=== PATIENT | male | born 1955 | race Caucasian/White ===

== ENCOUNTER 2021-08-12 13:31 | Outpatient (REF) | payer MEDICARE, SELFPAY ==
--- NOTE | ~2021-08-12 | US_ITS ---
EXAMINATION: US RETROPERITONEAL LIMITED (RENAL ONLY) CLINICAL INFORMATION: Cyst of kidney. COMPARISON: Ultrasound renal only 07/26/2017. TECHNIQUE: Real-time imaging of the kidneys. FINDINGS: RIGHT KIDNEY: 11.0 x 6.1 x 5.4 cm (SAG x AP x TRV). The kidney is normal in size, contour, and echogenicity. Renal cortical thickness is normal. No focal parenchymal lesions or hydronephrosis. Multiple calculi are noted in the right kidney for example in the interpolar region measuring 0.3 cm, and the lower pole region measuring 0.4 cm and in the interpolar region measuring 0.3 cm. LEFT KIDNEY: 12.5 x 5.5 x 5.5 cm (SAG x AP x TRV). The kidney is normal in size, contour, and echogenicity. Renal cortical thickness is normal. No hydronephrosis. Multiple left renal cysts are noted. The largest appearing in the left renal upper pole exophytic in size measuring 5.8 x 3.9 x 3.7 cm with septation. Additional cyst noted in the interpolar region measuring 1.6 x 2.5 x 1.7 cm. Multiple parapelvic cysts are noted. Multiple echogenic foci are noted as well as calculi for instance in the upper pole measuring up to 4 mm US/US renal BI IMPRESSION: 1. Right-sided nephrolithiasis without hydronephrosis. 2. Redemonstration of multiple cysts of the left kidney some of which are parapelvic in etiology in the largest appearing in the left upper pole, exophytic in nature with septation measuring up to 5.8 cm previously measuring up to 5.2 cm.
== END 2021-08-12 13:32 | disposition home or self-care (01) ==
LOC: HO.HMGCX 13:31
PROVIDERS: PCP Family Medicine; Visit Provider Urology
DX: N28.1 Cyst of kidney, acquired (principal); R31.29 Other microscopic hematuria
CPT/HCPCS: 76775

== ENCOUNTER → 2021-09-30 08:34 | Outpatient (BNVA) | payer MEDICARE, SELFPAY | PROVIDERS: PCP Family Medicine; Visit Provider Urology | DX: N20.0 Calculus of kidney (principal); N30.80 Other cystitis without hematuria; N28.1 Cyst of kidney, acquired; R97.20 Elevated prostate specific antigen [PSA] | CPT/HCPCS: Q3014 ==

== ENCOUNTER 2022-02-11 11:00 | Outpatient (REF) | payer MEDICARE, SELFPAY ==
--- NOTE | ~2022-02-11 | US_ITS ---
EXAMINATION: US RETROPERITONEAL LIMITED (RENAL ONLY) CLINICAL INFORMATION: Calculus of kidney. COMPARISON: Renal ultrasound 08/12/2021 and 07/26/2017. TECHNIQUE: Real-time imaging of the kidneys. FINDINGS: RIGHT KIDNEY: 11.3 x 5.6 x 5.0 cm (SAG x AP x TRV). The kidney is normal in size, contour, and echogenicity. Renal cortical thickness is normal. No focal parenchymal lesions or hydronephrosis. There are multiple renal calculi. Three calculi are outlined by the artificial leather calender operator, the largest in the lower pole measuring 4 mm. Another 3 mm calculus in the lower pole and a 3 mm calculus in the midpole likely. No hydronephrosis LEFT KIDNEY: 13.7 x 8.6 x 6.4 cm (SAG x AP x TRV). The kidney is normal in size, contour, and echogenicity. Renal cortical thickness is normal. No renal calculi. There is hydronephrosis here. This appears moderate. Etiology is indeterminate. Findings suggest a complex cyst involving the upper pole. Measures 5.4 x 3.1 x 4.5 cm. There appears to be a septation. US/US renal BI IMPRESSION: Hydronephrosis on the left. Etiology is indeterminate. This appears moderate. No stone is seen. Once again a complex cyst associated with the upper pole not significantly changed from most recent previous. If definitive evaluation is warranted at this time dynamic MRI would be recommended to fully characterize. Otherwise attention to follow-up. Numerous nonobstructing calculi involving the right kidney. No hydronephrosis here.
== END 2022-02-11 11:01 | disposition home or self-care (01) ==
LOC: HO.HMGCX 11:00
PROVIDERS: PCP Family Medicine; Visit Provider Urology
DX: N20.0 Calculus of kidney (principal)
CPT/HCPCS: 76775

== ENCOUNTER 2022-04-02 10:03 | Outpatient (REF) | payer MEDICARE, SELFPAY ==
[2022-04-02 11:41] LABS: PSA,Total (Free>4and<10) 5.72 ng/mL (0.00-4.00)
[2022-04-06 13:22] LABS: Free Prostate Spec Ag 1.1 ng/mL; Percent Free Prostate Spec Ag 22 % (calc) (>25)
== END 2022-04-02 10:04 | disposition home or self-care (01) ==
LOC: HO.LAB 10:03
PROVIDERS: PCP Family Medicine; Visit Provider Urology
DX: Z12.5 Encounter for screening for malignant neoplasm of prostate (principal); N13.8 Other obstructive and reflux uropathy; N40.1 Benign prostatic hyperplasia with lower urinary tract symptoms; R97.20 Elevated prostate specific antigen [PSA]
CPT/HCPCS: 36415; 84153; 84154

== ENCOUNTER → 2022-04-09 11:02 | Outpatient (BNVA) | payer MEDICARE, SELFPAY | PROVIDERS: PCP Family Medicine; Visit Provider Urology | DX: N20.0 Calculus of kidney (principal); N32.0 Bladder-neck obstruction; R97.20 Elevated prostate specific antigen [PSA] | CPT/HCPCS: 99212 ==

== ENCOUNTER → 2022-10-13 10:17 | Outpatient (BNVA) | payer MEDICARE, SELFPAY | PROVIDERS: PCP Family Medicine; Visit Provider Urology | DX: R97.20 Elevated prostate specific antigen [PSA] (principal); N52.9 Male erectile dysfunction, unspecified; N20.0 Calculus of kidney | CPT/HCPCS: Q3014 ==

== ENCOUNTER 2023-03-21 08:00 | Outpatient (REF) | payer MEDICARE, SELFPAY ==
--- NOTE | ~2023-03-21 | US_ITS ---
EXAMINATION: US RETROPERITONEAL LIMITED (RENAL ONLY) CLINICAL INFORMATION: Calculus of kidney. COMPARISON: Ultrasound retroperitoneal limited (renal only) 02/11/2022 and 08/12/2021. TECHNIQUE: Real-time imaging of the kidneys. FINDINGS: RIGHT KIDNEY: 11.7 x 6.3 x 4.9 cm (SAG x AP x TRV). The kidney is normal in size, contour, and echogenicity. Renal cortical thickness is normal. No focal parenchymal lesions or hydronephrosis. Nonobstructing stones measuring 5 mm in the lower pole, previously 4 mm and 4 mm in the upper pole, new from prior. Few other previously seen stones are not identified. LEFT KIDNEY: 13.0 x 5.5 x 5.7 cm (SAG x AP x TRV). The kidney is normal in size, contour, and echogenicity. Renal cortical thickness is normal. No renal calculi. Benign appearing and likely benign renal cysts the largest measuring 3.9 cm with a single thin internal septation, no routine follow up imaging recommended. Left renal pelviectasis without adan hydronephrosis, improved from prior. US/US renal BI IMPRESSION: 1. Nonobstructing right renal stones measuring 5 mm in the lower pole, previously 4 mm and 4 mm in the upper pole, new from prior. Few other previously seen stones are not identified. 2. Left renal pelviectasis without adan hydronephrosis, improved from prior.
== END 2023-03-21 08:01 | disposition home or self-care (01) ==
LOC: HO.US 08:00
PROVIDERS: PCP Family Medicine; Visit Provider Urology
DX: N20.0 Calculus of kidney (principal); R97.20 Elevated prostate specific antigen [PSA]
CPT/HCPCS: 76775

== ENCOUNTER → 2023-04-20 08:20 | Outpatient (BNVA) | payer MEDICARE, SELFPAY | PROVIDERS: PCP Family Medicine; Visit Provider Urology | DX: R97.20 Elevated prostate specific antigen [PSA] (principal); N32.0 Bladder-neck obstruction; N52.9 Male erectile dysfunction, unspecified; N20.0 Calculus of kidney | CPT/HCPCS: 99212 ==

== ENCOUNTER 2023-10-25 15:07 | Outpatient (AMB) | payer MEDICARE, SELFPAY ==
--- NOTE | 2023-10-25 15:12 | MHC.OFFVIS ---
Intake Intake Visit Reasons: 6m/PSA(set) Intake Note: Patient is Present for Telephone Follow Up PSA Urology Med: Finasteride, Tadalafil ,Tamsulosin, Vitamin b6 Antibiotic Allergy:Penicillin Blood Thinner: None Allergies penicillin Allergy (Unknown, Uncoded 04/20/23 08:24) Unknown Medication List - Last Reconciled 10/25/23 by Jeromy Childress MD chlorthalidone 12.5 mg PO QAM finasteride 5 mg PO DAILY 90 days naproxen 500 mg PO BID 14 days pyridoxine (vitamin B6) 100 mg PO DAILY 90 days rosuvastatin 10 mg PO BEDTIME tadalafil 20 mg PO ONCE PRN 30 days tamsulosin 0.4 mg PO daily 14 days vardenafil 10 mg PO DAILY PRN HPI HPI Comments History of Present Illness Details Javed RODRIGUES is a very pleasant male. He is a patient of Dr Quintero. He is seen for the following urologic conditions. - elevated PSA - nephrolithiasis - renal cyst Telemedicine Evaluation 15 min Consultation [employer] Romie Video attempted PSA fell back on finasteride Refill tadalafil Refill finasteride Six month follow-up lab work Imaging with renal ultrasound shows 4 mm stone right side, no stones left Elevated PSA/Abnormal MARIOLA:? He presents for ?further evaluation of elevated PSA.? Current management is?finasteride.? Laboratory investigations include?a total PSA evaluation ?followed for a number for years previously by Dr Giron. ?06/06 3.5, 07/08 3.1 ?12/09 Bladder biopsy - chronic cystitis, 10/09 4.7, 04/11 5.0, 04/11 5.7 F 22%, 10/12 2.9, 04/12 5.1, 10/13 4.1 ? Individualized Prostate Cancer Risk Calculator?< 5% high risk, Would like to continue with observation and understands and accepts the risks of a possible delay in diagnosis.? Therapeutic plan - continue finasteride Renal cyst with nephrolithiasis:? Stable cyst on left. ? They present for ?evaluation of renal mass, probable, simple cyst.? Imaging included?08/08 , a renal ultrasound, showing class II cyst(s), 3.1-5.9 in size, on the left.? - 09/10 renal ultrasound right-sided multiple small stones to 3 mm, left cyst 5 cm ? The diagnosis was?a complex cyst, Grade II.? Repeat ultrasound in 6 months all stone vitamin B6 PFSH Medical History Bursitis Cystitis cystica Elevated prostate specific antigen [PSA] Herpes simplex infection HTN (hypertension) Hyperlipidemia Lesion of bladder Microhematuria Renal cyst Tendonitis Surgical History History of surgery Review of Systems Const All systems reviewed & are unremarkable except as noted in HPI and below Reports no additional complaints Resp Reports no additional complaints GI Reports no additional complaints Reports as per HPI Musc Reports no additional complaints Physical Exam Telemedicine evaluation Appropriate responses Regular breathing rate and rhythm HEENT Head: Yes normal to inspection Ears: hearing grossly normal bilaterally Eyes General: appearance normal, both eyes and all related structures Neck Neck: Yes normal visual inspection Chest Chest palpation & inspection: normal inspection of the chest Resp Effort & Inspection: normal respiratory effort and able to speak in complete sentences Assessment & Plan Assessment & Plan (1) Bladder outlet obstruction: Code(s): N32.0 - Bladder-neck obstruction (2) Erectile dysfunction: Code(s): N52.9 - Male erectile dysfunction, unspecified (3) Cystitis cystica: Code(s): N30.80 - Other cystitis without hematuria Plan 6 month follow-up lab work Medications: Refilled finasteride 5 mg PO DAILY 90 tabs 1RF 90 days N13.8 - Other obstructive and reflux uropathy, N40.1 - Benign prostatic hyperplasia with lower urinary tract symptoms, R33.9 - Retention of urine, unspecified, R97.20 - Elevated prostate specific antigen [PSA] tadalafil 20 mg PO ONCE PRN 30 tabs 0RF sexual activity 30 days N52.9 - Male erectile dysfunction, unspecified Patient Instructions: Imaging studies, laboratory and physical exam results were discussed and reviewed in detail. No major barriers to patient understanding were identified. An opportunity to ask questions regarding the treatment plan was provided. All questions were answered. The patient expressed understanding and agreement with the above treatment plan. The patient is aware they should contact our office by phone for worsening of their current condition or the appearance of new urologic symptoms. Compliance is encouraged with any medications and followup testing that is ordered. It is a privilege to participate in the urologic care of your patient. If you have any questions or concerns regarding treatment for the above conditions, or other urologic issues, please do not hesitate to contact me. The office telephone contact is [phone]. This note is constructed using voice recognition software. While every effort has been made to ensure accuracy portable power tool repairer errors may have been included. Yours sincerely, Dr Jeromy Childress MD, [facility] - Urology Providers of Expert, Compassionate Care for the Genitourinary System Telehealth Telehealth Location of provider rendering services: practice address Location of patient: address on file Patient Identification confirmed using: Name, : Yes Telehealth method: video Patient verbally consented to treatment: Yes Patient verbally consented to billing insurance company: Yes Patient informed of any privacy concerns related to visit: Yes Coding Level of Care Code Tele Est Pt Level 3 (34763) Diagnoses Bladder outlet obstruction N32.0 Erectile dysfunction N52.9 Cystitis cystica N30.80
== END 2023-10-25 16:09 | disposition home or self-care (01) ==
LOC: HO.HUSH 15:07
PROVIDERS: PCP Family Medicine; Visit Provider Urology
DX: N32.0 Bladder-neck obstruction (principal); N52.9 Male erectile dysfunction, unspecified; N30.80 Other cystitis without hematuria
CPT/HCPCS: 99213

== ENCOUNTER → 2023-10-25 15:07 | Outpatient (BNVA) | payer MEDICARE, SELFPAY | PROVIDERS: PCP Family Medicine; Visit Provider Urology ==

== ENCOUNTER 2024-04-27 10:22 | Outpatient (AMB) | payer MEDICARE, SELFPAY ==
--- NOTE | 2024-04-27 10:47 | MHC.OFFVIS ---
Intake Visit Reasons: 6m/PSA/PVR(SET) Intake Note: Patient is Present for PVR/PSA Urology Med: Tamsulosin, Tadalafil Antibiotic Allergy:Penicillin Blood Thinner: None Patient is no longer taking both Vitamin B6 and Finasteride Todays PVR: 83 Allergies penicillin Allergy (Unknown, Uncoded 04/27/24 10:55) Unknown Medication List - Last Reconciled 04/27/24 by Jeromy Childress MD chlorthalidone 12.5 mg PO QAM naproxen 500 mg PO BID 14 days pyridoxine (vitamin B6) 100 mg PO DAILY 90 days rosuvastatin 10 mg PO BEDTIME tadalafil 20 mg PO ONCE PRN 30 days vardenafil 10 mg PO DAILY PRN HPI Comments Details: Javed RODRIGUES is a very pleasant male. He is a patient of Dr Quintero. He is seen for the following urologic conditions. - elevated PSA - nephrolithiasis - renal cyst Six-month follow-up - PSA rise to 6.2 -prior negative biopsy a number of years ago Recommendation prostate MRI Refill tadalafil Imaging with renal ultrasound shows 4 mm stone right side, no stones left Elevated PSA/Abnormal MARIOLA:? He presents for ?further evaluation of elevated PSA.? Current management is?finasteride.? Laboratory investigations include?a total PSA evaluation ?followed for a number for years previously by Dr Giron. ?06/06 3.5, 07/08 3.1 ?12/09 Bladder biopsy - chronic cystitis, 10/09 4.7, 04/11 5.0, 04/11 5.7 F 22%, 10/12 2.9, 04/12 5.1, 10/13 4.1 ? Individualized Prostate Cancer Risk Calculator?< 5% high risk, Would like to continue with observation and understands and accepts the risks of a possible delay in diagnosis.? Therapeutic plan - continue finasteride Renal cyst with nephrolithiasis:? Stable cyst on left. ? They present for ?evaluation of renal mass, probable, simple cyst.? Imaging included?08/08 , a renal ultrasound, showing class II cyst(s), 3.1-5.9 in size, on the left.? - 09/10 renal ultrasound right-sided multiple small stones to 3 mm, left cyst 5 cm ? The diagnosis was?a complex cyst, Grade II.? Repeat ultrasound in 6 months all stone vitamin B6 PFSH Medical History Bursitis Tendonitis Hyperlipidemia Herpes simplex infection HTN (hypertension) Cystitis cystica Microhematuria Elevated prostate specific antigen [PSA] Lesion of bladder Renal cyst Surgical History History of surgery Review of Systems Const Denies chills and Denies fever(s) Card Reports no additional complaints and Denies syncope Resp Denies cough GI Denies abdominal pain and Denies heartburn Reports as per HPI and Denies change in libido Neuro Denies syncope Psych Denies change in libido Endo Denies change in libido Physical Exam Const General: cooperative, healthy appearing, comfortable and no acute distress Orientation/consciousness: patient oriented x3 HEENT Face and sinus: Yes normal facial exam Mouth: moist mucous membranes Neck Neck: Yes normal visual inspection, Yes full ROM and Yes trachea midline Chest Chest palpation & inspection: normal inspection of the chest Resp Effort & Inspection: normal respiratory effort, able to speak in complete sentences and no respiratory distress GI Inspection: Yes normal to inspection Back/Spine/Pelvis Cervical Spine: normal cervical lordosis Thoracic/Lumbar Spine: thoracic and lumbar spine normal to inspection Skin General skin exam: no rashes or lesions noted Neuro General: patient oriented x3, gait normal, tone normal and moves all extremities Extrem General: Yes normal to inspection and Yes capillary refill normal Office Procedures Post Void Residual Post Residual Void Post Void Residual (PVR): 83 [id number] Void Residual by ultrasound Assessment & Plan Assessment & Plan (1) Elevated prostate specific antigen [PSA]: Code(s): R97.20 - Elevated prostate specific antigen [PSA] Category: Medical (2) Bladder outlet obstruction: Code(s): N32.0 - Bladder-neck obstruction Category: Medical (3) Erectile dysfunction: Code(s): N52.9 - Male erectile dysfunction, unspecified Category: Medical Plan Four month follow-up prostate MRI Orders: Orders Blood Urea Nitrogen 4 Months R97.20 - Elevated prostate specific antigen [PSA] Creatinine 4 Months R97.20 - Elevated prostate specific antigen [PSA] AMB Post Void Residual by ultrasound Today N32.0 - Bladder-neck obstruction Prostate Specific Antigen 4 Months R97.20 - Elevated prostate specific antigen [PSA] MR pelvis wo/w con Today N32.0 - Bladder-neck obstruction, N52.9 - Male erectile dysfunction, unspecified, R97.20 - Elevated prostate specific antigen [PSA] Medications: Refilled tadalafil 20 mg PO ONCE 30 days PRN 30 tabs 0RF sexual activity N52.9 - Male erectile dysfunction, unspecified Patient Instructions: Imaging studies, laboratory and physical exam results were discussed and reviewed in detail. No major barriers to patient understanding were identified. An opportunity to ask questions regarding the treatment plan was provided. All questions were answered. The patient expressed understanding and agreement with the above treatment plan. The patient is aware they should contact our office by phone for worsening of their current condition or the appearance of new urologic symptoms. Compliance is encouraged with any medications and followup testing that is ordered. It is a privilege to participate in the urologic care of your patient. If you have any questions or concerns regarding treatment for the above conditions, or other urologic issues, please do not hesitate to contact me. The office telephone contact is [phone]. This note is constructed using voice recognition software. While every effort has been made to ensure accuracy night baker errors may have been included. Yours sincerely, Dr Jeromy Childress MD, [facility] - Urology Providers of Expert, Compassionate Care for the Genitourinary System Coding Level of Care Code Est Pt Level 4 (20163) Diagnoses Elevated prostate specific antigen [PSA] R97.20 Bladder outlet obstruction N32.0 Erectile dysfunction N52.9 CPT Codes Post Residual Void - PVR CPT Code: [id number]-[id number] Void Residual by ultrasound ([id number])
== END 2024-04-27 11:19 | disposition home or self-care (01) ==
PROVIDERS: PCP Family Medicine; Visit Provider Urology
DX: R97.20 Elevated prostate specific antigen [PSA] (principal); N32.0 Bladder-neck obstruction; N52.9 Male erectile dysfunction, unspecified
CPT/HCPCS: 99214

== ENCOUNTER → 2024-04-27 10:22 | Outpatient (BNVA) | payer MEDICARE, SELFPAY | PROVIDERS: PCP Family Medicine; Visit Provider Urology | DX: N32.0 Bladder-neck obstruction (principal); N52.9 Male erectile dysfunction, unspecified; R97.20 Elevated prostate specific antigen [PSA] | CPT/HCPCS: 51798; 99212 ==

== ENCOUNTER 2024-08-29 10:33 | Outpatient (AMB) | payer MEDICARE, SELFPAY ==
--- NOTE | 2024-08-29 10:44 | MHC.OFFVIS ---
Intake Visit Reasons: 4m/PSA/MRI(set) Intake Note: Patient is Present for Follow Up MRI/PSA Urology Medication: Vitamin b6, Tadalafil Antibiotic Allergies:Penicillin Blood Thinners: None Recent PSA: 08/23/2024 4.9 MRI 08/07/24 Obstetrics Nurse Required: No Accompanied by: Self / Same As Patient Allergies penicillin Allergy (Unknown, Uncoded 08/29/24 10:49) Unknown Medication List - Last Reconciled 08/29/24 by Jeromy Childress MD chlorthalidone 12.5 mg PO QAM naproxen 500 mg PO BID 14 days pyridoxine (vitamin B6) 100 mg PO DAILY 90 days rosuvastatin 10 mg PO BEDTIME tadalafil 20 mg PO ONCE PRN 30 days vardenafil 10 mg PO DAILY PRN HPI Comments Details: Javed RODRIGUES is a very pleasant male. He is a patient of Dr Quintero. He is seen for the following urologic conditions. - elevated PSA - nephrolithiasis - renal cyst Continue PSA surveillance Discussed MRI result Continue with surveillance Refill tadalafil Imaging with renal ultrasound shows 4 mm stone right side, no stones left Elevated PSA/Abnormal MARIOLA:? He presents for ?further evaluation of elevated PSA.? Current management is?finasteride.? Laboratory investigations include?a total PSA evaluation ?followed for a number for years previously by Dr Giron. ?06/06 3.5, 07/08 3.1 ?12/09 Bladder biopsy - chronic cystitis, 10/09 4.7, 04/11 5.0, 04/11 5.7 F 22%, 10/12 2.9, 04/12 5.1, 10/13 4.1, 09/13 4.9 Imaging - 08/14 Prostate MRI - PSA 4.9, 70 g prostate, 1.3 cm PI-RADS 3 right lateral mid gland lesion ? Individualized Prostate Cancer Risk Calculator?< 5% high risk, Would like to continue with observation and understands and accepts the risks of a possible delay in diagnosis.? Therapeutic plan - continue finasteride Renal cyst with nephrolithiasis:? Stable cyst on left. ? They present for ?evaluation of renal mass, probable, simple cyst.? Imaging included?08/08 , a renal ultrasound, showing class II cyst(s), 3.1-5.9 in size, on the left.? - 09/10 renal ultrasound right-sided multiple small stones to 3 mm, left cyst 5 cm ? The diagnosis was?a complex cyst, Grade II.? Repeat ultrasound in 6 months all stone vitamin B6 Erectile dysfunction Responsive to tadalafil PFSH Medical History Bursitis Tendonitis Hyperlipidemia Herpes simplex infection HTN (hypertension) Cystitis cystica Microhematuria Elevated prostate specific antigen [PSA] Lesion of bladder Renal cyst Surgical History History of surgery Review of Systems Const Denies chills and Denies fever(s) Card Reports no additional complaints and Denies syncope Resp Denies cough GI Denies abdominal pain and Denies heartburn Reports as per HPI and Denies change in libido Neuro Denies syncope Psych Denies change in libido Endo Denies change in libido Physical Exam Const General: cooperative, healthy appearing, comfortable and no acute distress Orientation/consciousness: patient oriented x3 HEENT Face and sinus: Yes normal facial exam Mouth: moist mucous membranes Neck Neck: Yes normal visual inspection, Yes full ROM and Yes trachea midline Chest Chest palpation & inspection: normal inspection of the chest Resp Effort & Inspection: normal respiratory effort, able to speak in complete sentences and no respiratory distress GI Inspection: Yes normal to inspection Back/Spine/Pelvis Cervical Spine: normal cervical lordosis Thoracic/Lumbar Spine: thoracic and lumbar spine normal to inspection Skin General skin exam: no rashes or lesions noted Neuro General: patient oriented x3, gait normal, tone normal and moves all extremities Extrem General: Yes normal to inspection and Yes capillary refill normal Assessment & Plan Assessment & Plan (1) Erectile dysfunction: Code(s): N52.9 - Male erectile dysfunction, unspecified Category: Medical (2) Bladder outlet obstruction: Code(s): N32.0 - Bladder-neck obstruction Category: Medical (3) Nephrolithiasis: Code(s): N20.0 - Calculus of kidney Category: Medical (4) Elevated prostate specific antigen [PSA]: Code(s): R97.20 - Elevated prostate specific antigen [PSA] Category: Medical Plan Six-month follow-up Orders: Orders PSA,Total (Free>4and<10) 6 Months R97.20 - Elevated prostate specific antigen [PSA] Patient Instructions: Imaging studies, laboratory and physical exam results were discussed and reviewed in detail. No major barriers to patient understanding were identified. An opportunity to ask questions regarding the treatment plan was provided. All questions were answered. The patient expressed understanding and agreement with the above treatment plan. The patient is aware they should contact our office by phone for worsening of their current condition or the appearance of new urologic symptoms. Compliance is encouraged with any medications and followup testing that is ordered. It is a privilege to participate in the urologic care of your patient. If you have any questions or concerns regarding treatment for the above conditions, or other urologic issues, please do not hesitate to contact me. The office telephone contact is [phone]. This note is constructed using voice recognition software. While every effort has been made to ensure accuracy ticket chopper assembler errors may have been included. Yours sincerely, Dr Jeromy Childress MD, [facility] - Urology Providers of Expert, Compassionate Care for the Genitourinary System Coding Level of Care Code Est Pt Level 3 (16168) Diagnoses Erectile dysfunction N52.9 Bladder outlet obstruction N32.0 Nephrolithiasis N20.0 Elevated prostate specific antigen [PSA] R97.20
== END 2024-08-29 11:32 | disposition home or self-care (01) ==
PROVIDERS: PCP Family Medicine; Visit Provider Urology
DX: N52.9 Male erectile dysfunction, unspecified (principal); N32.0 Bladder-neck obstruction; N20.0 Calculus of kidney; R97.20 Elevated prostate specific antigen [PSA]
CPT/HCPCS: 99213

== ENCOUNTER → 2024-08-29 10:33 | Outpatient (BNVA) | payer MEDICARE, SELFPAY | PROVIDERS: PCP Family Medicine; Visit Provider Urology | DX: R97.20 Elevated prostate specific antigen [PSA] (principal); N20.0 Calculus of kidney; N28.1 Cyst of kidney, acquired; N32.0 Bladder-neck obstruction; N52.9 Male erectile dysfunction, unspecified | CPT/HCPCS: 99212 ==

== ENCOUNTER 2025-02-15 10:52 | Outpatient (REF) | payer MEDICARE, SELFPAY ==
[2025-02-15 15:12] LABS: PSA,Total (Free>4and<10) 6.19 ng/mL (0.00-4.00)
[2025-02-18 13:13] LABS: Free Prostate Spec Ag 0.8 ng/mL; Percent Free Prostate Spec Ag 15 % (calc) (>25); Prostate Specific Ag Total 5.5 ng/mL (< OR = 4.0)
== END 2025-02-15 10:53 | disposition home or self-care (01) ==
LOC: HO.WFDLDS 10:52
PROVIDERS: Visit Provider Urology
DX: R97.20 Elevated prostate specific antigen [PSA] (principal); Z12.5 Encounter for screening for malignant neoplasm of prostate
CPT/HCPCS: 36415; 84153; 84154

== ENCOUNTER 2025-02-18 17:56 | Outpatient (REF) | payer MEDICARE, SELFPAY ==
--- OUTSIDE RECORDS SUMMARY | 2025-02-18 18:19 | XMS_ITS | Encounter Summary ---
Author Organization [facility] Address [address] [place] [address] Phone Care Team Providers Care Tug Hand Name Role Phone Carlos Quintero DO Primary Care Provider [phone] Encounter Details Date Type Department Care Team (Late st Contact Info) Description 04/13/2022 Documentation Only [facility] [address] [place] [id number] Stanton Golden DO [address] [place] [address] Social History Tobacco Use Types Packs/Day Years Used Date Smoking Tobacco: Never Smokeless Tobacco: Never Alcohol Use Standard Drinks/Week Comments Yes 0 (1 standard drink = 0.6 oz pur e alcohol) 1-2 times per year Sex and Gender Information Value Date Recorded Sex Assigned at Not on file Legal Sex Male 11:47 AM EST Gender Identity Not on file Sexual Orientation Not on file COVID-19 Exposure Response Date Recorded In the last 10 days, have yo u been in contact with someone who was confirmed or suspected to have Coronavirus/COVID-19? No / Unsure 04/12/2022 10:23 AM EDT documented as of this encounter Plan of Treatment Not on file documented as of this encounter Visit Diagnoses Not on filedocumented in this encounter Care Teams Tug Hand Relationship Specialty Start Date End Date Carlos Quintero DO [address] [place] [id number] PCP - General Family Medicine 10/14/21 documented as of this encounter
--- OUTSIDE RECORDS SUMMARY | 2025-02-18 18:19 | XMS_ITS | Encounter Summary ---
Author Organization [facility] Address [address] [facility] [address] [place] [address] Phone Care Team Providers Care Edge Drummer Name Role Phone Carlos Quintero DO Primary Care Provider [phone] Reason for Visit * Reason Comments Med Refill Encounter Details Date Type Department Care Team (Late st Contact Info) Description 12/01/2021 Refill [facility] [address] [place] [address] Stanton Golden DO [address] [place] [address] Social History Tobacco Use Types Packs/Day Years [...] Exposure Response Date Recorded In the last month, have you been in contact with someone who was confirmed or suspected to have Coronavirus / COVID-19? No / Unsure 11/30/2021 10:23 AM EST documented as of this encounter Plan of Treatment Not on file documented as of this encounter Visit Diagnoses Not on filedocumented in this encounter Care Teams Edge Drummer Relationship Specialty Start Date End Date Carlos Quintero DO [address] [place] [address] PCP - General Family Medicine 10/14/21 documented as of this encounter
--- OUTSIDE RECORDS SUMMARY | 2025-02-18 18:19 | XMS_ITS | Clinical Summary ---
Author Organization [facility] Address [address] [place] [address] Care Team Providers Care Director Of Retail Marketing Name Role Phone Carlos Quintero Primary Care Provider [phone] Allergies Active Allergy Reactions Criticality Noted Date Comments Penicillin V Unknown/Patient and Family Unable to Define Medium 12/13/2023 Sulfa Antibiotics Unknown/Patient and Family Unable to Define Medium 12/13/2023 Medications Medication Sig Dispensed Refills Start Date End Date Status rosuvastatin (CRESTOR) 10 MG tablet Take 10 mg by mouth daily. 10/10/2023 Active tadalafil (CIALIS) 20 MG tablet TAKE ONE TABLET BY MOUTH EVERY DAY NEEDED FOR SEXUAL ACTIVITY 10/26/2023 Active finasteride (PROSCAR) 5 MG tablet Take 5 mg by mouth daily. 10/25/2023 Active fluticasone (FloNASE) 50 mcg/spray nasal sprayIndications:Viral upper respiratory tract infection 1 spray into each nostril daily. 1 each 12/13/2023 Active proMETHAZINE-dextromet horphan (proMETHAZINE-DM) 6.25-15 MG/5ML syrupIndications:Acute cough Take 5 mL by mouth every 4 (four) hours as needed for cough. 120 mL 12/13/2023 Active Active Problems No known active problems Social History Tobacco Use Types Packs/Day Years Used Date Smoking Tobacco: Never Assessed Sex and Gender Information Value Date Recorded Sex Assigned at Not on file Gender Identity Not on file Sexual Orientation Not on file Last Filed Vital Signs Vital Sign Reading Time Taken Comments Blood Pressure 133/91 12/13/2023 11:06 AM EST Pulse 79 12/13/2023 11:06 AM EST Temperature 36.7 ??C (98 ??F) 12/13/2023 11:06 AM EST Respiratory Rate 16 12/13/2023 11:06 AM EST Oxygen Saturation 96% 12/13/2023 11:06 AM EST Inhaled Oxygen Concentration - - Weight 81.6 kg (180 lb) 12/13/2023 11:06 AM EST Height 175.3 cm (5' 9 ) 12/13/2023 11:06 AM EST Body Mass Index 26.58 12/13/2023 11:06 AM EST Plan of Treatment Health Maintenance Due Date Last Done Comments Hepatitis C Virus Screening 1954 DTaP/Tdap/Td Vaccines (1 - Tdap) 1973 Colonoscopy 1999 Pneumococcal Vaccines 50+ (1 of 1 - PCV) 2004 Zoster (Shingles) Vaccine (1 of 2) 2004 Influenza Vaccine 06/21/2024 COVID-19 Vaccine ( - 2023-2 5 season) 2024 RSV Vaccine 60 years and old er and Patients (1 - 1-dose 75+ series) 2029 Hepatitis B Vaccines Aged Out No long er eligible based on patient's age to complete this topic Care Teams Director Of Retail Marketing Relationship Specialty Start Date End Date Carlos Quintero DO [address] [place] [address] PCP - General 12/13/23
--- OUTSIDE RECORDS SUMMARY | 2025-02-18 18:19 | XMS_ITS | Encounter Summary ---
Author Organization [facility] Address [address] [place] [address] Phone Care Team Providers Care Recreation Assistant Name Role Phone Carlos Quintero DO Primary Care Provider [phone] Encounter Details Date Type Department Care Team (Late st Contact Info) Description 12/01/2021 Documentation Only [facility] [address] [place] [phone] [place] Golden DO [address] [place] [address] Social History Tobacco Use Types Packs/Day Years [...] on filedocumented in this encounter Care Teams Recreation Assistant Relationship Specialty Start Date End Date Carlos Quintero DO [address] [place] [address] PCP - General Family Medicine 10/14/21 documented as of this encounter
--- OUTSIDE RECORDS SUMMARY | 2025-02-18 18:19 | XMS_ITS | Clinical Summary ---
Author Organization [facility] Address [address] [facility] [address] [place] [address] Phone Care Team Providers Care Climatologist Name Role Phone Carlos Quintero DO Primary Care Provider [phone] Allergies Active Allergy Reactions Criticality Noted Date Comments Penicillins 10/27/2021 Medications B Complex-C (B complex-vitamin C) tablet Take 1 tablet by mouth 1 (one) time each day Active Multiple Vitamin (Multivitamin Adult) tablet Take 1 tablet by mouth 1 (one) time each day 06/26/2015 Active rosuvastatin (CRESTOR) 10 MG tablet 12/03/2021 Active tamsulosin (FLOMAX) 0.4 MG 24 hr capsule 12/11/2021 Activ e finasteride (PROSCAR) 5 MG tablet Take 5 mg by mouth 1 (one) time each day 04/09/2022 Active chlorthalidone 25 MG tablet TAKE 1/2 TABLET BY MOUTH EVERY DAY 45 tablet 1 06/24/2022 Active Active Problems Problem Noted Date Diagnosed Date 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 Bilateral inguinal hernia 11/06/2021 Diastasis recti 11/06/2021 Incisional hernia 11/06/2021 Hypertension 10/27/2021 Blood in urine 10/27/2021 Hyperlipidemia 10/27/2021 Complex renal cyst 10/27/2021 Resolved Problems Problem Noted Date Diagnosed Date Resolved Date Increased blood pressure 12/01/202109/2022 Patient encounter status 12/01/202109/2022 Actinic keratosis 10/27/2021 11/30/2021 Elevated blood pressure reading 10/27/2021 11/30/2021 Elevated prostate specific antigen (PSA) 10/27/2021 11/30/2021 Seborrheic keratosis 10/27/2021 022 Family History Medical History Relation Comments Throat cancer Father Hypertension Mother Stroke Mother Heart attack Mother's Brother Relation Status Comments Father Mother Mother's Brother Social History Tobacco Use Types Packs/Day Years Used Date Smoking Tobacco: Never Smokeless Tobacco: Never Tobacco Cessation:Counseling Given: No Alcohol Use Standard Drinks/Week Comments Yes 0 (1 standard drink = 0.6 oz pur e alcohol) 1-2 times per year Sex and Gender Information Value Date Recorded Sex Assigned at Not on file Legal Sex Male 11:47 AM EST Gender Identity Not on file Sexual Orientation Not on file Last Filed Vital Signs Vital Sign Reading Time Taken Comments Blood Pressure 136/80 05/27/2022 3:32 PM EDT Pulse 71 05/27/2022 3:32 PM EDT Temperature - - Respiratory Rate - - Oxygen Saturation 98% 05/27/2022 3:32 PM EDT Inhaled Oxygen Concentration - - Weight 82.1 kg (181 lb) 05/27/2022 3:32 PM EDT Height - - Body Mass Index - - Plan of Treatment Health Maintenance Due Date Last Done Comments Pneumococcal Vaccine: 65+ Ye ars (1 of 2 - PCV) 1960 Colorectal Cancer Screening: Annual FOBT 2003 Colorectal Cancer Screening: Colonoscopy 2003 Colorectal Cancer Screening: Sigmoidoscopy 2003 Influenza Vaccine (#1) 2024 Hepatitis B Vaccine Aged Out No longe r eligible based on patient's age to complete this topic Insurance MEDICARE [facility] MEDICARE [facility] Care Teams Climatologist Relationship Specialty Start Date End Date Carlos Quintero DO [address] [place] [address] PCP - General Family Medicine 10/14/21
[2025-02-18 18:20] LABS: Appearance Urine Clear; Color Urine Yellow; Glucose Urine UA Negative (Negative); Leukocyte Esterase Urine Trace (Negative); Nitrite Urine Negative (Negative); Specific Gravity - Urine 1.025 (1.005-1.025); UMIC TRIGGER UA YES; Urine Blood Moderate (2+) (Negative); Urine Ketones Trace mg/dL (Negative); Urine Protein Negative (Neg-Trace)
[2025-02-18 18:32] LABS: Bacteria Urine None Seen (None Seen); Hyaline Casts Urine 0-2 /LPF (0-2); RBC Urine >20 /HPF (0-2); Squamous Epithelial Cell Urine 0-2 /HPF (0-2); WBC Urine 0-5 /HPF (0-5)
== END 2025-02-18 17:57 | disposition home or self-care (01) ==
LOC: HO.LNP 17:56
PROVIDERS: Visit Provider Urology
DX: N20.0 Calculus of kidney (principal); R31.29 Other microscopic hematuria
CPT/HCPCS: 81001; 87086

== ENCOUNTER 2025-02-28 09:33 | Outpatient (REF) | payer MEDICARE, SELFPAY ==
--- OUTSIDE RECORDS SUMMARY | 2025-02-28 18:06 | XMS_ITS | Encounter Summary ---
Author Organization [facility] Address [address] [facility] [address] [place] [address] Phone Care Team Providers Care Press Room Supervisor Name Role Phone Carlos Quintero DO Primary Care Provider [phone] Reason for Visit * Reason Comments Med Refill Encounter Details Date Type Department Care Team (Late st Contact Info) Description 12/01/2021 Refill [facility] [address] [place] [address] [place] Golden DO [address] [place] [address] Social History Tobacco Use Types Packs/Day Years [...] on filedocumented in this encounter Care Teams Press Room Supervisor Relationship Specialty Start Date End Date Carlos Quintero DO [address] [place] [address] PCP - General Family Medicine 10/14/21 documented as of this encounter
--- OUTSIDE RECORDS SUMMARY | 2025-02-28 18:06 | XMS_ITS | Clinical Summary ---
Author Organization [facility] Address [address] [place] [address] Care Team Providers Care Maritime Guard Name Role Phone Carlos Quintero Primary Care Provider [phone] Allergies Active Allergy Reactions Criticality Noted Date [...] age to complete this topic Care Teams Maritime Guard Relationship Specialty Start Date End Date Carlos Quintero DO [address] [place] [address] PCP - General 12/13/23
--- OUTSIDE RECORDS SUMMARY | 2025-02-28 18:06 | XMS_ITS | Encounter Summary ---
Author Organization [facility] Address [address] [place] [address] Phone Care Team Providers Care Adjudication Specialist Name Role Phone Carlos Quintero DO Primary Care Provider [phone] Encounter Details Date Type Department Care Team (Late st Contact Info) Description 04/13/2022 Documentation Only [facility] [address] [place] [phone] [place] Golden DO [address] [place] [address] Social History Tobacco Use Types Packs/Day Years [...] on filedocumented in this encounter Care Teams Adjudication Specialist Relationship Specialty Start Date End Date Carlos Quintero DO [address] [place] [address] PCP - General Family Medicine 10/14/21 documented as of this encounter
--- OUTSIDE RECORDS SUMMARY | 2025-02-28 18:06 | XMS_ITS | Encounter Summary ---
Author Organization [facility] Address [address] [place] [address] Phone Care Team Providers Care Wound Care Nurse Name Role Phone Carlos Quintero DO Primary Care Provider [phone] Encounter Details Date Type Department Care Team (Late st Contact Info) Description 12/01/2021 Documentation Only [facility] [address] [place] [phone] [place] Golden DO [address] [place] [address] Social History Tobacco Use Types Packs/Day Years [...] on filedocumented in this encounter Care Teams Wound Care Nurse Relationship Specialty Start Date End Date Carlos Quintero DO [address] [place] [address] PCP - General Family Medicine 10/14/21 documented as of this encounter
--- OUTSIDE RECORDS SUMMARY | 2025-02-28 18:06 | XMS_ITS | Clinical Summary ---
Author Organization [facility] Address [address] [facility] [address] [place] [address] Phone Care Team Providers Care Internal Carver Name Role Phone Carlos Quintero DO Primary Care Provider [phone] Allergies Active Allergy Reactions Criticality Noted Date [...] age to complete this topic Insurance Medicare [facility] Medicare [facility] Care Teams Internal Carver Relationship Specialty Start Date End Date Carlos Quintero DO [address] [place] [address] PCP - General Family Medicine 10/14/21
[2025-03-11 17:53] LABS: Stone Source KIDSTS1844A
== END 2025-02-28 09:34 | disposition home or self-care (01) ==
LOC: HO.LNP 09:33
PROVIDERS: PCP Family Medicine; Visit Provider Urology
DX: N20.0 Calculus of kidney (principal); N32.0 Bladder-neck obstruction
CPT/HCPCS: 82365; 88300; 99212

== ENCOUNTER 2025-02-28 09:33 | Outpatient (AMB) | payer MEDICARE, SELFPAY ==
--- NOTE | 2025-02-28 09:40 | MHC.OFFVIS ---
Intake Visit Reasons: 6m/PSA Intake Note: Patient is present for 6M/PSA Urology Medication:VITAMIN B6,TADALAFIL Antibiotic Allergy:PENICILLIN Blood Thinner:NONE Wash Rack Operator Required: No Allergies penicillin Allergy (Unknown, Uncoded 02/28/25 09:41) Unknown HPI Comments Details: Javed RODRIGUES is a very pleasant male. He is a patient of Dr Quintero. He is seen for the following urologic conditions. - elevated PSA - nephrolithiasis - renal cyst Continue slow rise in PSA Refill finasteride and restart Add back B6 for stones Has stone that he recently passed Six-month follow-up PSA and renal ultrasound Elevated PSA/Abnormal MARIOLA:? He presents for ?further evaluation of elevated PSA.? Current management is?finasteride.? Laboratory investigations include?a total PSA evaluation ?followed for a number for years previously by Dr Giron. ?06/06 3.5, 07/08 3.1 ?12/09 Bladder biopsy - chronic cystitis, 10/09 4.7, 04/11 5.0, 04/11 5.7 F 22%, 10/12 2.9, 04/12 5.1, 10/13 4.1, 09/13 4.9, 02/12 5.5 15% Imaging - 08/14 Prostate MRI - PSA 4.9, 70 g prostate, 1.3 cm PI-RADS 3 right lateral mid gland lesion ? Individualized Prostate Cancer Risk Calculator?< 5% high risk, Would like to continue with observation and understands and accepts the risks of a possible delay in diagnosis.? Therapeutic plan - continue finasteride Renal cyst with nephrolithiasis:? Stable cyst on left. ? They present for ?evaluation of renal mass, probable, simple cyst.? Imaging included?08/08 , a renal ultrasound, showing class II cyst(s), 3.1-5.9 in size, on the left.? - 09/10 renal ultrasound right-sided multiple small stones to 3 mm, left cyst 5 cm ? The diagnosis was?a complex cyst, Grade II.? Repeat ultrasound in 6 months all stone vitamin B6 Erectile dysfunction Responsive to tadalafil PFSH Medical History Bursitis Tendonitis Hyperlipidemia Herpes simplex infection HTN (hypertension) Cystitis cystica Microhematuria Elevated prostate specific antigen [PSA] Lesion of bladder Renal cyst Surgical History History of surgery Review of Systems Const Denies chills and Denies fever(s) Card Reports no additional complaints and Denies syncope Resp Denies cough GI Denies abdominal pain and Denies heartburn Reports as per HPI and Denies change in libido Neuro Denies syncope Psych Denies change in libido Endo Denies change in libido Physical Exam Const General: cooperative, healthy appearing, comfortable and no acute distress Orientation/consciousness: patient oriented x3 HEENT Face and sinus: Yes normal facial exam Mouth: moist mucous membranes Neck Neck: Yes normal visual inspection, Yes full ROM and Yes trachea midline Chest Chest palpation & inspection: normal inspection of the chest Resp Effort & Inspection: normal respiratory effort, able to speak in complete sentences and no respiratory distress GI Inspection: Yes normal to inspection Back/Spine/Pelvis Cervical Spine: normal cervical lordosis Thoracic/Lumbar Spine: thoracic and lumbar spine normal to inspection Skin General skin exam: no rashes or lesions noted Neuro General: patient oriented x3, gait normal, tone normal and moves all extremities Extrem General: Yes normal to inspection and Yes capillary refill normal Assessment & Plan Assessment & Plan (1) Nephrolithiasis: Code(s): N20.0 - Calculus of kidney Category: Medical (2) Bladder outlet obstruction: Code(s): N32.0 - Bladder-neck obstruction Category: Medical Plan Restart medications Six-month follow-up PSA and renal ultrasound Orders: Orders Prostate Specific Antigen 6 Months N20.0 - Calculus of kidney US renal BI 6 Months N20.0 - Calculus of kidney Medications: New finasteride 5 mg PO DAILY 90 days 90 tabs 1RF N13.8 - Other obstructive and reflux uropathy, N32.0 - Bladder-neck obstruction, N40.1 - Benign prostatic hyperplasia with lower urinary tract symptoms, R33.9 - Retention of urine, unspecified Patient Instructions: This note is constructed using voice recognition software. While every effort has been made to ensure accuracy players club representative errors may have been included. Imaging studies, laboratory and physical exam results were discussed and reviewed in detail. No major barriers to patient understanding were identified. An opportunity to ask questions regarding the treatment plan was provided. All questions were answered. The patient expressed understanding and agreement with the above treatment plan. The patient is aware they should contact our office by phone for worsening of their current condition or the appearance of new urologic symptoms. Compliance is encouraged with any medications and followup testing that is ordered. It is a privilege to participate in the urologic care of your patient. If you have any questions or concerns regarding treatment for the above conditions, or other urologic issues, please do not hesitate to contact me. The office telephone contact is [phone]. Sincerely, Dr Jeromy Childress MD, [facility] - Urology Compassionate Specialist Care for the Genitourinary System Coding Level of Care Code Est Pt Level 4 (81646) Complex EM visit Add On G2211 Diagnoses Nephrolithiasis N20.0 Bladder outlet obstruction N32.0
--- OUTSIDE RECORDS SUMMARY | 2025-02-28 10:36 | XMS_ITS | Clinical Summary ---
Author Organization [facility] Address [address] [place] [address] Care Team Providers Care Corporate Legal Assistant Name Role Phone Carlos Quintero Primary Care Provider [phone] Allergies Active Allergy Reactions Criticality Noted Date [...] age to complete this topic Care Teams Corporate Legal Assistant Relationship Specialty Start Date End Date Carlos Quintero DO [address] [place] [address] PCP - General 12/13/23"
--- OUTSIDE RECORDS SUMMARY | 2025-02-28 10:36 | XMS_ITS | Encounter Summary ---
Author Organization [facility] Address [address] [place] [address] Phone Care Team Providers Care Safety Analyst Name Role Phone Carlos Quintero DO Primary Care Provider [phone] Encounter Details Date Type Department Care Team (Late st Contact Info) Description 12/01/2021 Documentation Only [facility] [address] [place] [phone] [place] Golden DO [address] [place] [address] Social History Tobacco Use Types Packs/Day Years [...] on filedocumented in this encounter Care Teams Safety Analyst Relationship Specialty Start Date End Date Carlos Quintero DO [address] [place] [address] PCP - General Family Medicine 10/14/21 documented as of this encounter
--- OUTSIDE RECORDS SUMMARY | 2025-02-28 10:36 | XMS_ITS | Encounter Summary ---
Author Organization [facility] Address [address] [facility] [address] [place] [address] Phone Care Team Providers Care Tile And Marble Installer Name Role Phone Carlos Quintero DO Primary Care Provider [phone] Reason for Visit * Reason Comments Med Refill Encounter Details Date Type Department Care Team (Late st Contact Info) Description 12/01/2021 Refill [facility] [address] [place] [address] [place] Golden DO [address] [place] [address] Social History Tobacco Use Types Packs/Day Years [...] on filedocumented in this encounter Care Teams Tile And Marble Installer Relationship Specialty Start Date End Date Carlos Quintero DO [address] [place] [address] PCP - General Family Medicine 10/14/21 documented as of this encounter
--- OUTSIDE RECORDS SUMMARY | 2025-02-28 10:36 | XMS_ITS | Clinical Summary ---
Author Organization [facility] Address [address] [facility] [address] [place] [address] Phone Care Team Providers Care Rater Associate Name Role Phone Carlos Quintero DO Primary Care Provider [phone] Allergies Active Allergy Reactions Criticality Noted Date [...] Due Date Last Done Comments Pneumococcal Vaccine: 50+ Ye ars (1 of 2 - PCV) 1960 Colorectal Cancer Screening: Annual FOBT 2003 Colorectal Cancer Screening: Colonoscopy 2003 Colorectal Cancer Screening: Sigmoidoscopy 2003 Influenza Vaccine (Season Ended) 2025 Hepatitis B Vaccine Aged Out No longe r eligible based on patient's age to complete this topic Insurance Medicare [facility] Medicare [facility] Care Teams Rater Associate Relationship Specialty Start Date End Date Carlos Quintero DO [address] [place] [address] PCP - General Family Medicine 10/14/21
--- OUTSIDE RECORDS SUMMARY | 2025-02-28 10:36 | XMS_ITS | Encounter Summary ---
Author Organization [facility] Address [address] [place] [address] Phone Care Team Providers Care Return Agent Airport Name Role Phone Carlos Quintero DO Primary Care Provider [phone] Encounter Details Date Type Department Care Team (Late st Contact Info) Description 04/13/2022 Documentation Only [facility] [address] [place] [phone] [place] Golden DO [address] [place] [address] Social History Tobacco Use Types Packs/Day Years [...] on filedocumented in this encounter Care Teams Return Agent Airport Relationship Specialty Start Date End Date Carlos Quintero DO [address] [place] [address] PCP - General Family Medicine 10/14/21 documented as of this encounter
== END 2025-02-28 10:20 | disposition home or self-care (01) ==
LOC: HO.HUSH 09:34
PROVIDERS: PCP Family Medicine; Visit Provider Urology
DX: N20.0 Calculus of kidney (principal); N32.0 Bladder-neck obstruction
CPT/HCPCS: 99214; G2211

== ENCOUNTER 2025-08-09 08:29 | Outpatient (REF) | payer MEDICARE, SELFPAY ==
--- OUTSIDE RECORDS SUMMARY | 2025-08-09 09:03 | XMS_ITS | Encounter Summary ---
Author Organization [facility] Address [address] [place] [address] Phone Care Team Providers Care Hospice Care Consultant Name Role Phone Carlos Quintero DO Primary Care Provider [phone] Encounter Details Date Type Department Care Team (Late st Contact Info) Description 12/01/2021 Documentation Only [facility] [address] [place] [phone] [place] Golden DO [address] [place] [address] Social History Tobacco Use Types Packs/Day Years [...] on filedocumented in this encounter Care Teams Hospice Care Consultant Relationship Specialty Start Date End Date Carlos Quintero DO [address] [place] [address] PCP - General Family Medicine 10/14/21 documented as of this encounter
--- OUTSIDE RECORDS SUMMARY | 2025-08-09 09:03 | XMS_ITS | Clinical Summary ---
Author Organization [facility] Address [address] [facility] [address] [place] [address] Phone Care Team Providers Care Pricing Specialist Name Role Phone Carlos Quintero DO Primary Care Provider [phone] Allergies Active Allergy Reactions Criticality Noted Date [...] Ye ars (1 of 2 - PCV) 1973 Colorectal Cancer Screening: Annual FOBT 2003 Colorectal Cancer Screening: Colonoscopy 2003 Colorectal Cancer Screening: Sigmoidoscopy 2003 Influenza Vaccine (#1) 2025 Hepatitis B Vaccine Aged Out No longe r eligible based on patient's age to complete this topic Insurance Medicare [facility] Medicare [facility] Care Teams Pricing Specialist Relationship Specialty Start Date End Date Carlos Quintero DO [address] [place] [address] PCP - General Family Medicine 10/14/21
--- OUTSIDE RECORDS SUMMARY | 2025-08-09 09:03 | XMS_ITS | Clinical Summary ---
Author Organization [facility] Address [address] [place] [address] Care Team Providers Care Cpc Coder Name Role Phone Carlos Quintero DO Primary Care Provider [phone] Allergies Active Allergy Reactions Criticality Noted Date Comments Penicillin V Unknown/Patient and Family Unable to Define Medium 12/13/2023 Sulfa Antibiotics Unknown/Patient and Family Unable to Define Medium 12/13/2023 Medications rosuvastatin (CRESTOR) 10 MG tablet Take 10 mg by mouth daily. 3 Active tadalafil (CIALIS) 20 MG tablet TAKE ONE TABLET BY MOUTH EVERY DAY NEEDED FOR SEXUAL ACTIVITY 3 Active finasteride (PROSCAR) 5 MG tablet Take 5 mg by mouth daily. 3 Active fluticasone (FloNASE) 50 mcg/spray nasal sprayIndications :Viral upper respiratory tract infection 1 spray into each nostril daily. 1 each 4 Active proMETHAZINE-dex tromethorphan (proMETHAZINE-DM ) 6.25-15 MG/5ML syrupIndications :Acute cough Take 5 mL by mouth every 4 (four) hours as needed for cough. 120 mL 4 Active Active Problems No known active problems Social History Tobacco Use Types Packs/Day Years Used Date Smoking Tobacco: Never Assessed Sex and Gender Information Value Date Recorded Sex Assigned at Not on file Legal Sex Male 9:10 AM EST Gender Identity Not on file Sexual Orientation Not on file Last Filed Vital Signs Vital Sign Reading Time Taken Comments Blood Pressure 133/91 12/13/2023 11:06 AM EST Pulse 79 12/13/2023 11:06 AM EST Temperature 36.7 C (98 F) 12/13/2023 11:06 AM EST Respiratory Rate 16 12/13/2023 11:06 AM EST Oxygen Saturation 96% 12/13/2023 11:06 AM EST Inhaled Oxygen Concentration - - Weight 81.6 kg (180 lb) 12/13/2023 11:06 AM EST Height 175.3 cm (5' 9 ) 12/13/2023 11:06 AM EST Body Mass Index 26.58 12/13/2023 11:06 AM EST Plan of Treatment Health Maintenance Due Date Last Done Comments Advance Care Planning 1955 Hepatitis C Virus Screening 1955 DTaP/Tdap/Td Vaccines (1 - Tdap) 1973 Colonoscopy 1999 Pneumococcal Vaccines 50+ (1 of 1 - PCV) 2004 Zoster (Shingles) Vaccine (1 of 2) 2004 Influenza Vaccine 06/21/2025 COVID-19 Vaccine (1 - 2023-2 5 season) 2025 RSV Vaccine 60 years and old er and Patients (1 - 1-dose 75+ series) 2029 Hepatitis B Vaccines Aged Out No long er eligible based on patient's age to complete this topic Insurance [place] [id number] MEDICARE [facility] Care Teams Cpc Coder Relationship Specialty Start Date End Date Carlos Quintero DO [address] [place] [address] PCP - General 12/13/23
--- OUTSIDE RECORDS SUMMARY | 2025-08-09 09:03 | XMS_ITS | Encounter Summary ---
Author Organization [facility] Address [address] [facility] [address] [place] [address] Phone Care Team Providers Care Corner Former Name Role Phone Carlos Quintero DO Primary Care Provider [phone] Reason for Visit * Reason Comments Med Refill Encounter Details Date Type Department Care Team (Late st Contact Info) Description 12/01/2021 Refill [facility] [address] [place] [address] Stanton Golden DO [address] [place] [address] Social History Tobacco Use Types Packs/Day Years [...] on filedocumented in this encounter Care Teams Corner Former Relationship Specialty Start Date End Date Carlos Quintero DO [address] [place] [address] PCP - General Family Medicine 10/14/21 documented as of this encounter
--- OUTSIDE RECORDS SUMMARY | 2025-08-09 09:03 | XMS_ITS | Encounter Summary ---
Author Organization [facility] Address [address] [place] [address] Phone Care Team Providers Care Hunter Guide Name Role Phone Carlos Quintero DO Primary Care Provider [phone] Encounter Details Date Type Department Care Team (Late st Contact Info) Description 04/13/2022 Documentation Only [facility] [address] [place] [phone] Stanton Golden DO [address] [place] [address] Social History Tobacco Use Types Packs/Day Years [...] on filedocumented in this encounter Care Teams Hunter Guide Relationship Specialty Start Date End Date Carlos Quintero DO [address] [place] [address] PCP - General Family Medicine 10/14/21 documented as of this encounter
[2025-08-09 11:52] LABS: Blood Urea Nitrogen 11 mg/dL (9-16); Estimated Glomerular Filt Rate > 60
[2025-08-09 11:57] LABS: Prostate Specific Antigen 3.14 ng/mL (<0.05-4.0)
== END 2025-08-09 08:30 | disposition home or self-care (01) ==
LOC: HO.WFDLDS 08:29
PROVIDERS: Visit Provider Urology
DX: R97.20 Elevated prostate specific antigen [PSA] (principal); Z12.5 Encounter for screening for malignant neoplasm of prostate
CPT/HCPCS: 36415; 82565; 84153; 84520

== ENCOUNTER 2025-08-20 10:13 | Outpatient (REF) | payer MEDICARE, SELFPAY ==
--- NOTE | ~2025-08-20 | US_ITS ---
CLINICAL HISTORY: N20.0 - Calculus of kidney US of kidneys Comparison: 03/21/2023 Findings: Right kidney is normal in size, echogenicity and morphology, 11.2 cm in length. No calculus, mass or hydronephrosis. Left kidney is normal in size, echogenicity and morphology, 12.2 cm in length. No calculus or hydronephrosis. Minimally complex cyst with thin septation 3.5 x 3.3 x 3.1 cm in the upper pole, not seen before. Mildly lobulated avascular complex cyst with mildly thick septation also seen in the upper pole, 5.2 x 2.7 x 2.9 cm, previously 5.3 x 3.3 x 3.7 cm. Small simple cyst 1.9 cm in the upper pole, previously 1.5 cm. Limited color Doppler demonstrates unremarkable bilateral blood flow. Impression: Left renal cysts. This document has been electronically signed by: Demi Armendariz MD on 08/21/2025 12:21:04
--- OUTSIDE RECORDS SUMMARY | 2025-08-20 11:21 | XMS_ITS | Encounter Summary ---
Author Organization [facility] Address [address] [facility] [address] [place] [address] Phone Care Team Providers Care Cancellation Clerk Name Role Phone Carlos Quintero DO Primary Care Provider [phone] Reason for Visit * Reason Comments Med Refill Encounter Details Date Type Department Care Team (Late st Contact Info) Description 12/01/2021 Refill [facility] [address] [place] [address] Stanton Golden DO [address] [place] [address] Social History Tobacco Use Types Packs/Day Years [...] on filedocumented in this encounter Care Teams Cancellation Clerk Relationship Specialty Start Date End Date Carlos Quintero DO [address] [place] [address] PCP - General Family Medicine 10/14/21 documented as of this encounter
--- OUTSIDE RECORDS SUMMARY | 2025-08-20 11:21 | XMS_ITS | Encounter Summary ---
Author Organization [facility] Address [address] [place] [address] Phone Care Team Providers Care Gatekeeper Name Role Phone Carlos Quintero DO Primary Care Provider [phone] Encounter Details Date Type Department Care Team (Late st Contact Info) Description 04/13/2022 Documentation Only [facility] [address] [place] [phone] Stanton Golden DO [address] [place] [address] Social History Tobacco Use Types Packs/Day Years [...] on filedocumented in this encounter Care Teams Gatekeeper Relationship Specialty Start Date End Date Carlos Quintero DO [address] [place] [address] PCP - General Family Medicine 10/14/21 documented as of this encounter
--- OUTSIDE RECORDS SUMMARY | 2025-08-20 11:21 | XMS_ITS | Clinical Summary ---
Author Organization [facility] Address [address] [facility] [address] [place] [address] Phone Care Team Providers Care Top Frame Fitter Name Role Phone Carlos Quintero DO Primary Care Provider [phone] Allergies Active Allergy Reactions Criticality Noted Date [...] age to complete this topic Insurance Medicare [facility] Medicare [facility] Care Teams Top Frame Fitter Relationship Specialty Start Date End Date Carlos Quintero DO [address] [place] [address] PCP - General Family Medicine 10/14/21
--- OUTSIDE RECORDS SUMMARY | 2025-08-20 11:21 | XMS_ITS ---
Author Name [facility] Organization Unknown History of Medication Use Medication Directions Dispensed Refills Start Date End Date Stat us fluticasone (FloNASE) 50 mcg/spray nasal spray 1 spray into each nostril daily. 12/13/2023 active proMETHAZINE-dextrome thorphan (proMETHAZINE-DM) 6.25-15 MG/5ML syrup Take 5 mL by mouth every 4 (four) hours as needed for cough. 12/13/2023 active Allergies Allergen Reaction Severity Comment Documented Date Source Statu s SULFA ANTIBIOTICS UNKNOWN/PATIENT AND FAMILY UNABLE TO DEFINE 12/13/2023 [facility] active PENICILLIN V UNKNOWN/PATIENT AND FAMILY UNABLE TO DEFINE [facility] Problems Problem Status Onset Date Problem Type Date of Resoluti on Source Acute cough active EncounterDiagnosisAct [facility] Viral upper respiratory tract infection active EncounterDiagnosisAct [facility] Encounters Encounter Type Encounter Reason Primary Diagnosis Location Date Ambulatory Acute upper respiratory infection, unspecified Acute upper respiratory infection, unspecified [facility] 12/13/2023 Care Team Organization Name Specialty Phone Email Start Date End Da te [facility] Carlos Quintero Primary Care 12/13/2023 02/07/20 [facility] 12/13/2023 [facility] Carlos Quintero Primary Care 12/13/2023
--- OUTSIDE RECORDS SUMMARY | 2025-08-20 11:21 | XMS_ITS | Encounter Summary ---
Author Organization [facility] Address [address] [place] [address] Phone Care Team Providers Care Aerophysics Engineer Name Role Phone Carlos Quintero DO Primary Care Provider [phone] Encounter Details Date Type Department Care Team (Late st Contact Info) Description 12/01/2021 Documentation Only [facility] [address] [place] [phone] Stanton Golden DO [address] [place] [address] Social History Tobacco Use Types Packs/Day Years [...] on filedocumented in this encounter Care Teams Aerophysics Engineer Relationship Specialty Start Date End Date Carlos Quintero DO [address] [place] [address] PCP - General Family Medicine 10/14/21 documented as of this encounter
== END 2025-08-20 10:14 | disposition home or self-care (01) ==
LOC: HO.HMGCX 10:13
PROVIDERS: PCP Family Medicine; Visit Provider Urology
DX: N20.0 Calculus of kidney (principal)
CPT/HCPCS: 76775

== ENCOUNTER → 2025-08-20 10:15 | Outpatient (BNV) | payer MEDICARE, SELFPAY | PROVIDERS: PCP Family Medicine; Visit Provider Radiology Diagnostic Radiology | DX: N28.1 Cyst of kidney, acquired (principal) | CPT/HCPCS: 76775 ==

== ENCOUNTER 2025-08-30 09:01 | Outpatient (AMB) | payer MEDICARE, SELFPAY ==
--- OUTSIDE RECORDS SUMMARY | 2025-08-30 09:24 | XMS_ITS | Clinical Summary ---
Author Organization [facility] Address [address] [facility] [address] [place] [address] Phone Care Team Providers Care Sheep Farm Worker Name Role Phone Carlos Quintero DO Primary Care Provider [phone] Allergies Active Allergy Reactions Criticality Noted Date [...] age to complete this topic Insurance Medicare [facility] Medicare [facility] Care Teams Sheep Farm Worker Relationship Specialty Start Date End Date Carlos Quintero DO [address] [place] [address] PCP - General Family Medicine 10/14/21
--- OUTSIDE RECORDS SUMMARY | 2025-08-30 09:24 | XMS_ITS | Encounter Summary ---
Author Organization [facility] Address [address] [place] [address] Phone Care Team Providers Care Band Tier Name Role Phone Carlos Quintero DO Primary Care Provider [phone] Encounter Details Date Type Department Care Team (Late st Contact Info) Description 04/13/2022 Documentation Only [facility] [address] [place] [phone] Stanton Golden DO [address] [place] [address] Social History Tobacco Use Types Packs/Day Years [...] on filedocumented in this encounter Care Teams Band Tier Relationship Specialty Start Date End Date Carlos Quintero DO [address] [place] [address] PCP - General Family Medicine 10/14/21 documented as of this encounter
--- OUTSIDE RECORDS SUMMARY | 2025-08-30 09:25 | XMS_ITS | Clinical Summary ---
Author Organization [facility] Address [address] [place] [address] Care Team Providers Care Tile Inspector Name Role Phone Carlos Quintero DO Primary Care Provider [phone] Allergies Active Allergy Reactions Criticality Noted Date [...] patient's age to complete this topic Insurance [place] [id number] MEDICARE PART A & B Care Teams Tile Inspector Relationship Specialty Start Date End Date Carlos Quintero DO [address] [place] [address] PCP - General 12/13/23
--- OUTSIDE RECORDS SUMMARY | 2025-08-30 09:25 | XMS_ITS | Encounter Summary ---
Author Organization [facility] Address [address] [facility] [address] [place] [address] Phone Care Team Providers Care Jewelry Sales Coordinator Name Role Phone Carlos Quintero DO Primary Care Provider [phone] Reason for Visit * Reason Comments Med Refill Encounter Details Date Type Department Care Team (Late st Contact Info) Description 12/01/2021 Refill [facility] [address] [place] [address] Stanton Golden DO [address] [place] [address] Social History Tobacco Use Types Packs/Day Years [...] on filedocumented in this encounter Care Teams Jewelry Sales Coordinator Relationship Specialty Start Date End Date Carlos Quintero DO [address] [place] [address] PCP - General Family Medicine 10/14/21 documented as of this encounter
--- OUTSIDE RECORDS SUMMARY | 2025-08-30 09:25 | XMS_ITS | Encounter Summary ---
Author Organization [facility] Address [address] [place] [address] Phone Care Team Providers Care Anesthesiology Technologist Name Role Phone Carlos Quintero DO Primary Care Provider [phone] Encounter Details Date Type Department Care Team (Late st Contact Info) Description 12/01/2021 Documentation Only [facility] [address] [place] [phone] Stanton Golden DO [address] [place] [address] Social History Tobacco Use Types Packs/Day Years [...] on filedocumented in this encounter Care Teams Anesthesiology Technologist Relationship Specialty Start Date End Date aCrlos Quintero DO [address] [place] [address] PCP - General Family Medicine 10/14/21 documented as of this encounter
--- NOTE | 2025-08-30 09:26 | MHC.OFFVIS ---
Intake Visit Reasons: 6m/US/PSA Intake Note: patient presents today for: 6mo follow up urology medications: finasteride, vitb6, tadalafill blood thinners: none labs donbe 08/09/25: PSA 3.14 US done: 08/21/25 today's PVR: 22mls Facility Specialist Required: No Accompanied by: Self / Same As Patient Allergies penicillin Allergy (Unknown, Uncoded 08/30/25 09:28) Unknown HPI Comments Details: Javed RODRIGUES is a very pleasant male. He is a patient of Dr Quintero. He is seen for the following urologic conditions. - elevated PSA - nephrolithiasis - renal cyst PSA with significant drop Does report stream approximately 18 in however empties less than 25 seconds Continue finasteride daily Discussed ultrasound results Refilled tadalafil Elevated PSA/Abnormal MARIOLA:? He presents for ?further evaluation of elevated PSA.? Current management is?finasteride.? Laboratory investigations include?a total PSA evaluation ?followed for a number for years previously by Dr Giron. ?06/06 3.5, 07/08 3.1 ?12/09 Bladder biopsy - chronic cystitis, 10/09 4.7, 04/11 5.0, 04/11 5.7 F 22%, 10/12 2.9, 04/12 5.1, 10/13 4.1, 09/13 4.9, 02/12 5.5 15%, 08/15 3.1 Imaging - 08/14 Prostate MRI - PSA 4.9, 70 g prostate, 1.3 cm PI-RADS 3 right lateral mid gland lesion ? Individualized Prostate Cancer Risk Calculator?< 5% high risk, Would like to continue with observation and understands and accepts the risks of a possible delay in diagnosis.? Therapeutic plan - continue finasteride Renal cyst with nephrolithiasis:? Stable cyst on left. ? They present for ?evaluation of renal mass, probable, simple cyst.? Imaging included?08/08 , a renal ultrasound, showing class II cyst(s), 3.1-5.9 in size, on the left.? - 09/10 renal ultrasound right-sided multiple small stones to 3 mm, left cyst 5 cm - 09/14 renal ultrasound no stones, multiple left cysts proximally 5 cm ? The diagnosis was?a complex cyst, Grade II.? Repeat ultrasound in 6 months all stone vitamin B6 Erectile dysfunction Responsive to tadalafil PFSH Medical History Bursitis Tendonitis Hyperlipidemia Herpes simplex infection HTN (hypertension) Cystitis cystica Microhematuria Elevated prostate specific antigen [PSA] Lesion of bladder Renal cyst Surgical History History of surgery Review of Systems Const Denies chills and Denies fever(s) Card Reports no additional complaints and Denies syncope Resp Denies cough GI Denies abdominal pain and Denies heartburn Reports as per HPI and Denies change in libido Neuro Denies syncope Psych Denies change in libido Endo Denies change in libido Physical Exam Const General: cooperative, healthy appearing, comfortable and no acute distress Orientation/consciousness: patient oriented x3 HEENT Face and sinus: Yes normal facial exam Mouth: moist mucous membranes Neck Neck: Yes normal visual inspection, Yes full ROM and Yes trachea midline Chest Chest palpation & inspection: normal inspection of the chest Resp Effort & Inspection: normal respiratory effort, able to speak in complete sentences and no respiratory distress GI Inspection: Yes normal to inspection Back/Spine/Pelvis Cervical Spine: normal cervical lordosis Thoracic/Lumbar Spine: thoracic and lumbar spine normal to inspection Skin General skin exam: no rashes or lesions noted Neuro General: patient oriented x3, gait normal, tone normal and moves all extremities Extrem General: Yes normal to inspection and Yes capillary refill normal Assessment & Plan Assessment & Plan (1) Renal cyst: Code(s): N28.1 - Cyst of kidney, acquired Category: Medical (2) Cystitis cystica: Code(s): N30.80 - Other cystitis without hematuria Category: Medical (3) Nephrolithiasis: Code(s): N20.0 - Calculus of kidney Category: Medical (4) Bladder outlet obstruction: Code(s): N32.0 - Bladder-neck obstruction Category: Medical Plan Refill medications Twelve month follow-up lab work Orders: Orders Prostate Specific Antigen 12 Months N32.0 - Bladder-neck obstruction Medications: Refilled tadalafil 20 mg PO ONCE PRN 30 tabs 1RF sexual activity 30 days N52.9 - Male erectile dysfunction, unspecified pyridoxine (vitamin B6) 50 mg PO DAILY 90 tabs 3RF 90 days N20.0 - Calculus of kidney Discontinued vardenafil administer approximately 60 minutes before activity Discontinued Reason: Patient Completed Course 10 mg PO DAILY PRN 4 tabs 0RF erectile dysfunction Patient Instructions: This note is constructed using voice recognition software. While every effort has been made to ensure accuracy cloud subject matter expert errors may have been included. Imaging studies, laboratory and physical exam results were discussed and reviewed in detail. No major barriers to patient understanding were identified. An opportunity to ask questions regarding the treatment plan was provided. All questions were answered. The patient expressed understanding and agreement with the above treatment plan. The patient is aware they should contact our office by phone for worsening of their current condition or the appearance of new urologic symptoms. Compliance is encouraged with any medications and followup testing that is ordered. It is a privilege to participate in the urologic care of your patient. If you have any questions or concerns regarding treatment for the above conditions, or other urologic issues, please do not hesitate to contact me. The office telephone contact is [phone]. Sincerely, Dr Jeromy Childress MD, [facility] - Urology Compassionate Specialist Care for the Genitourinary System Coding Level of Care Code Est Pt Level 3 (98005) Complex EM visit Add On G2211 Diagnoses Renal cyst N28.1 Cystitis cystica N30.80 Nephrolithiasis N20.0 Bladder outlet obstruction N32.0
== END 2025-08-30 10:01 | disposition home or self-care (01) ==
LOC: HO.HUSH 09:01
PROVIDERS: PCP Family Medicine; Visit Provider Urology
DX: N28.1 Cyst of kidney, acquired (principal); N30.80 Other cystitis without hematuria; N20.0 Calculus of kidney; N32.0 Bladder-neck obstruction; Z13.9 Encounter for screening, unspecified
CPT/HCPCS: 99213; G2211

== ENCOUNTER → 2025-08-30 09:01 | Outpatient (BNVA) | payer MEDICARE, SELFPAY | PROVIDERS: PCP Family Medicine; Visit Provider Urology | DX: N32.0 Bladder-neck obstruction (principal); N20.0 Calculus of kidney; N30.80 Other cystitis without hematuria; N28.1 Cyst of kidney, acquired; N52.9 Male erectile dysfunction, unspecified | CPT/HCPCS: 51798; 81003; 99212 ==